=== PATIENT | female | born 1970 | race Caucasian/White ===

== ENCOUNTER 2018-08-03 05:03 | Day surgery (SDC) | payer OTHER ==
[2018-08-02 12:04] VITALS: BMI 30.7
--- NOTE | 2018-08-03 10:58 | HP ---
History & Physical Update - Physical Physical: No Change - Assessment Assessment: No Change - Plan Plan: No Change (H&P reviwed ,no changes)
[2018-08-03] MEDS ORDERED: MIDAZOLAM HCL 2 MG/2 ML SINGLE DOSE VIAL ONE (12:03)
[2018-08-03] MEDS ORDERED: DEXAMETHASONE SOD PHOSPHATE 4 MG/1 ML VIAL ONE (12:21)
[2018-08-03] MEDS ORDERED: LIDOCAINE HCL/PF 2% SDV 5ML VIAL ONE (12:21)
[2018-08-03] MEDS ORDERED: PROPOFOL 20 ML ONE (12:22)
[2018-08-03] MEDS ORDERED: oxyCODONE HCL 5 MG TABLET PO PRN (12:43)
[2018-08-03] MEDS ORDERED: ONDANSETRON 4 MG/2 ML VIAL IVPUSH PRN (12:43)
[2018-08-03] MEDS ORDERED: LACTATED RINGERS SOLUTION 1,000 ML IV SCH (12:45)
[2018-08-03] MEDS ORDERED: KETOROLAC TROMETHAMINE 30 MG/1 ML VIAL ONE (12:53)
--- NOTE | 2018-08-03 13:56 | OP ---
DATE OF OPERATION: 08/03/2018 PREOPERATIVE DIAGNOSIS: Menorrhagia, endometrial polyp. POSTOPERATIVE DIAGNOSIS: Menorrhagia, endometrial polyp, endometrial cyst. SURGEON: Samy Mixon MD ANESTHESIA: General. ANESTHESIOLOGIST: Dimas Smith MD ESTIMATED BLOOD LOSS: 50 mL. DESCRIPTION OF PROCEDURE: The patient was taken to the operating room. Under adequate general anesthesia in dorsal lithotomy position, examination under anesthesia revealed external genitalia to be normal. Vagina was normal. Cervix was clean. No gross lesion. Uterus was prominent, anteverted. Adnexa, no masses were palpable. Then with a weighted speculum in the vagina, anterior lip of the cervix was grasped with a single-tooth tenaculum. Cervix was slightly dilated with Hegar dilator and sounded to 9 cm. Then Symphion resectoscope was introduced. Visualization of endocervical canal appeared to be normal. There was an endometrial polyp in the mid body of the uterus anteriorly and then there was a cystic area on the posterior wall of the uterus, which was prominent with dilated blood vessels. Both cornual regions were identified. No submucosa myoma noted. Then with a Symphion resectoscope, the endometrial polyp was resected. Also that cystic area on the posterior wall of the uterus was also resected and sent to Pathology. Then endometrial curetting was done. The patient tolerated the procedure well and left the OR in good condition. SAMY MIXON M.D. /[id number]
[2018-08-03 17:40] VITALS: TEMP 97.8
[2018-08-03 19:48] VITALS: BP 109/65; PULSE 75
--- NOTE | 2018-08-04 09:58 | OP ---
DATE OF OPERATION: 08/03/2018 PREOPERATIVE DIAGNOSIS: Menorrhagia, endometrial polyp. POSTOPERATIVE DIAGNOSIS: Menorrhagia, endometrial polyp. PROCEDURE: Hysteroscopy, dilatation and curettage, and polypectomy. SURGEON: Samy Mixon MD ANESTHESIA: General. ANESTHESIOLOGIST: Dimas Smith MD ESTIMATED BLOOD LOSS: 25 mL. OPERATION: Patient was taken to the operating room, had adequate general anesthesia, and in dorsal lithotomy position, examination under anesthesia revealed external genitalia to be normal. Vagina was normal. Cervix was clean, no lesion. Uterus was irregular, prominent, consistent with fibroid uterus. Adnexa, no masses were palpable. Then, with a weighted speculum in the vagina, anterior lip of the cervix was grasped with a single-tooth tenaculum. Uterine cavity was sounded to 8 cm. Then, cervix was slightly dilated with Hegar dilator, and then Symphion Resectoscope was introduced into the uterus. The endocervical canal appeared to be normal. There was a polyp at the fundal area of the uterus. Both cornua region of the uterus was identified and tubal ostia were visualized. The rest of the endometrium appeared to be normal. Then, with the resectoscope, the polyp was resected and removed in its entirety, and then, endometrium was curetted. Patient tolerated the procedure well, left the OR in good condition. SAMY MIXON M.D. [id number]
--- NOTE | 2018-08-05 19:27 | PATH ---
Surgical Pathology Report Patient Name: JACINTO CHACON [facility]. Rec. #: [id number] /Age/Gender: 1970 (Age: 47) / F Account: [id number] Location: [facility] SURGICAL Taken: 08/03/2018 Received: 08/04/2018 Reported: 08/05/2018 Physicians: Samy Mixon M.D. Specimen(s) Received A: ENDOMETRIAL POLYP AND FIBROID B: ENDOMETRIAL CURETTINGS Clinical History Endometrial polyp/submucous Final Diagnosis A. ENDOMETRIAL POLYP AND FIBROID, EXCISION: ENDOMETRIAL POLYP. SEPARATE SMOOTH MUSCLE BUNDLES, CONSISTENT WITH SUBMUCOSAL LEIOMYOMA. B. ENDOMETRIAL CURETTINGS: ENDOMETRIAL POLYP. SEPARATE FRAGMENTS OF PROLIFERATIVE ENDOMETRIUM. SEPARATE ENDOCERVICAL TISSUE WITH SQUAMOUS METAPLASIA. Electronically Signed Иван Mullins M.D. Gross Description A. Received in formalin labeled "endometrial polyp/fibroid," is a 2.0 x 1.7 x 0.3 cm aggregate of lewis soft tissue fragments. The formalin is filtered and the specimen is entirely submitted in one cassette. B. Received in formalin labeled "endometrial curettings," is a 1.7 x 1.0 x 0.2 cm aggregate of lewis-brown soft tissue fragments admixed with blood clot. The formalin is filtered and the specimen is entirely submitted in one cassette. /08/04/2018 saudi08/04/2018
== END 2018-08-03 19:15 | disposition home or self-care (01) ==
LOC: JASU-SURG 05:03
PROVIDERS: ATTEND Obstetrics & Gynecology
PROC: 0UJD8ZZ Inspection of Uterus and Cervix, Via Natural or Artificial Opening Endoscopic (ICD-10-PCS; 2018-08-03)
PROC: 0UB97ZX Excision of Uterus, Via Natural or Artificial Opening, Diagnostic (ICD-10-PCS; principal; 2018-08-03 11:00)
PROC: 0UDB7ZX Extraction of Endometrium, Via Natural or Artificial Opening, Diagnostic (ICD-10-PCS; 2018-08-03 11:00)
DX: N92.0 Excessive and frequent menstruation with regular cycle (principal); N84.0 Polyp of corpus uteri
CPT/HCPCS: 84703; 88305-TC; 94760

== ENCOUNTER 2019-03-10 08:45 | Emergency (ER) | payer OTHER ==
[2019-03-10 08:55] VITALS: BMI 30.9
[2019-03-10] MEDS ORDERED: ACETAMINOPHEN 1000 MG/100 ML VIAL (NON FORMULARY) IVPB ONE (09:45)
[2019-03-10] MEDS ORDERED: METOCLOPRAMIDE HCL INJECTION 10 MG/2 ML VIAL IVPUSH ONE (09:45)
--- NOTE | 2019-03-10 09:50 | PDOC ---
History of Present Illness - General Chief Complaint: Headache Stated Complaint: HEADACHE/DIZZINES/BLURRY VISION Time Seen by Provider: 03/10/19 09:10 History Source: Patient - History of Present Illness Initial Comments: 03/10/19 09:50 48f with pmh of herpes simplex and sinus headaches presents to the ED painful pressure behind the eyes, nose and teeth for the past 2 weeks. She also associates this 2 days after exposing herself to the sun at the beach she developed a painless, non-itching, non-burning lesion on her right cheekbone and her left upper lip ( site where she usually gets cold sores). She went to urgent care were they diagnosed her with zoster and sinusitis, gave her a 7 day course of Valtrex 1g TID and Amoxicillin for sinusitis which she completed. Went to her PCP as she was still feeling symptoms, told her he didn't think this was herpes and to consult an ER if symptoms didn't resolve. She denies changes in vision, chest pain, change in auditory perception, Past History - Past Medical History Allergies/Adverse Reactions: Allergies Allergy/AdvReac Type Severity Reaction Status Date / Time No Known Allergies Allergy Verified 03/10/19 08:51 Home Medications: Ambulatory Orders Amoxicillin/Potassium Clav [Amox-Clav 875-125 mg Tablet] 1 each PO BID 03/10/19 Metoclopramide HCl [Reglan] 10 mg PO BID #14 tablet 03/10/19 Anemia: Yes Asthma: Yes (?) Cancer: No Cardiac Disorders: No CVA: No COPD: No CHF: No Dementia: No Diabetes: No GI Disorders: No Disorders: No HTN: No Hypercholesterolemia: No Liver Disease: No Seizures: No Thyroid Disease: No - Surgical History Abdominal Surgery: Yes - Immunization History Immunization Up to Date: Yes - Suicide/Smoking/Psychosocial Hx Smoking History: Never smoked Have you smoked in the past 12 months: No Information on smoking cessation initiated: No Hx Alcohol Use: No Drug/Substance Use Hx: No Substance Use Type: None Hx Substance Use Treatment: No Review of Systems - Review of Systems Able to Perform ROS?: Yes Is the patient limited Malay proficient: No Constitutional: No: Symptoms Reported HEENTM: Yes: See HPI Respiratory: No: Symptoms reported Cardiac (ROS): No: Symptoms Reported ABD/GI: No: Symptoms Reported : No: Symptoms Reported Musculoskeletal: No: Symptoms Reported Integumentary: No: Symptoms Reported Neurological: No: Symptoms reported All Other Systems: Reviewed and Negative *Physical Exam - Vital Signs Last Vital Signs Temp Pulse Resp BP Pulse Ox 98.4 F 66 17 127/86 98 03/10/19 08:52 03/10/19 08:52 03/10/19 08:52 03/10/19 08:52 03/10/19 08:52 - Physical Exam General Appearance: Yes: Nourished, Appropriately Dressed. No: Apparent Distress HEENT: positive: EOMI, MERCEDEZ, Normal ENT Inspection, Other (1x1cm lesion over right zygomatic arch and left upper lip. ) Respiratory/Chest: positive: Lungs Clear, Normal Breath Sounds. negative: Chest Tender, Respiratory Distress Cardiovascular: positive: Regular Rhythm, Regular Rate, S1, S2 Gastrointestinal/Abdominal: positive: Normal Bowel Sounds, Flat, Soft. negative : Tender Musculoskeletal: positive: Normal Inspection. negative: CVA Tenderness Extremity: positive: Normal Capillary Refill, Normal Inspection, Normal Range of Motion Integumentary: positive: Normal Color, Dry, Warm Neurologic: positive: Fully Oriented, Alert, Normal Mood/Affect, Normal Response , Motor Strength 5/5 Medical Decision Making - Medical Decision Making 03/10/19 11:08 48f with pmh of sinus headaches and herpes simplex coming in for sinus pressure. Her lesions are not maculopapular and do not resemble herpetic lesions. In addition the lesions cross the midline and are neither painful nor itchy. The ear canals are normal, no concern for Gallagher-Iverson, No lesion visible over the eyes. Will scan head and orbits/sinus for any sinus abnormality, masses or infection. Negative head and orbit CT. Patient has gotten significant relief of symptoms while in the ED with reglan, tylenol and benadryl. On last reassessment, vitals are wnl, pain is reasonably controlled, and exam is benign. Workup is not concerning for emergency-level pathology at this time. This patient is appropriate for discharge home with neurology and ENT follow up , They is comfortable with this plan. They will take Motrin and/or Tylenol for pain. *DC/Admit/Observation/Transfer Diagnosis at time of Disposition: Sinus headache - Discharge Dispostion Disposition: HOME Condition at time of disposition: Improved Decision to Admit order: No - Referrals Referrals: Shalonda Jane MD [Primary Care Provider] - Nick Nguyen MD [Staff Physician] - Stanford Lafleur MD [Staff Physician] - - Patient Instructions Printed Discharge Instructions: Sinus Headache Additional Instructions: Come back to the emergency department for any new, worsening or concerning symptom. Take Tylenol, Motrin for pain and Benadryl and Reglan if needed. Follow up with the provided ENT doctors and neurologist. - Post Discharge Activity
[2019-03-10] MEDS ORDERED: ACETAMINOPHEN INJECTION 100 ML IVPB ONE (10:44)
[2019-03-10] MEDS ORDERED: METOCLOPRAMIDE HCL INJECTION 10 MG/2 ML VIAL ONE (10:44)
--- NOTE | 2019-03-10 10:50 | PDOC ---
Documentation entered by Von Poe SCRIBE, acting as scribe for Kim Nguyen MD. Kim Nguyen MD: This documentation has been prepared by the Lui christianson Daniel, SCRIBE, under my direction and personally reviewed by me in its entirety. I confirm that the documentation accurately reflects all work, treatment, procedures, and medical decision making performed by me. Attending Attestation - Resident Resident Name: Uriel Pace - ED Attending Attestation I have performed the following: I have examined & evaluated the patient, The case was reviewed & discussed with the resident, I agree w/resident's findings & plan - HPI HPI: 03/10/19 09:45 The patient is a 48 year old female with no past medical history here today for evaluation of headache. The patient reports that she recently developed a rash on her face with lesions after going to the beach which was diagnosed as shingles at an urgent care but was told by her PCP that it wasnt shingles. She reports that she came in today because of her generalized throbbing headache which she describes as a pressure behind her nose and eyes, intermittently occurring, and has been going on for 1 week. She has also experienced left sided neck stiffness, worse with movement. She notes taking aleve and sudafed which provided no relief. She also notes left neck stiffness and blurry vision and nasal congestion, mild cough. Patient denies fever, chills. Denies chest pain, shortness of breath. Denies nausea, vomiting, diarrhea, abdominal pain. Denies sore throat, ear pain. no travel no sick contacts. has completed valtrex course x 1 week. has 2 more days of amoxicillin left for her sinusitis. Allergies: NKA PCP: Shalonda Jane 03/10/19 10:47 - Physicial Exam PE: 03/10/19 10:17 +pearly lesions on right forehead, right cheek and lower jaw, no crusting, no discharge, one small scabbed over lesion on lower jaw. +anxious appearing, EOMI , PERRL, MMM, nl conjunctiva, anicteric; no tenderness to sinus percussion. oropharynx clear, no lesions, normal phonation. neck supple, FROM, no meningeal signs. lungs clear, RRR, abdomen soft nontender. Back nontender. ERNST x4, no focal neuro deficits. no cerebellar signs. No peripheral edema. normal color for ethnicity, WWP. CN II-XII grossly intact, speech clear. CN V grossly intact, 5/5 masseter muscles, sensation grossly intact V1-3 gait stable, no ataxia. visual acuity 20/20 bilaterally with corrective lenses. no injection and no chemosis. T. M clear b/l 03/10/19 10:44 03/10/19 10:46 03/10/19 10:49 - Medical Decision Making 03/10/19 10:45 hpi as documented VS reviewed wnl Vital Signs Temp Pulse Resp BP Pulse Ox 98.4 F 66 17 127/86 98 03/10/19 08:52 03/10/19 08:52 03/10/19 08:52 03/10/19 08:52 03/10/19 08:52 DDX headache: sinusitis, sinus kim, cluster, migraine, tension kim, furniture mover helper lesion, mass. viral syndrome. viral infection. conjunctivitis. herpes, trigeminal neuralgia no rash to indicate zoster or herpes ophthalmicus. no nasal lesions nontoxic appearing CT orbits and head neg for acute pathology analgesia here with reglan, benadryl and tylenol, reassess impression : most likely sinusitis, of viral etiology. has 2 more days of amox left finished valtrex headache/sinus pain/pressure to be further evaluated with ENT followup, feels improved after meds, comfortable with plan and discharge Pt to be discharged in stable condition. Patient and family made aware of clinical impression, treatment recommendations and disposition plan, return precautions discussed (including but not limited to new or persistent/worsening symptoms, pain, fevers, or signs of infection, chest pain, respiratory distress , inability to tolerate oral intake, dehydration, syncope, or neurologic changes ). Follow up with PMD and/or specialist as recommended, follow up information provided, take medications as instructed for duration of time. continue with supportive care, avoid triggers and precipitants. All questions answered to patient's satisfaction and expressed understanding and comfort with this. At the time of discharge, the patient is alert, clinically improved, tolerating po and verbalizes understanding of instructions, satisfied with the care received and felt comfortable with the plan. Patient does not suffer from an acute life- threatening medical condition at this time and is safe for outpatient follow- up. 03/10/19 10:48 03/10/19 12:10
[2019-03-10 12:37] VITALS: BP 128/79; PULSE 80; TEMP 98
== END 2019-03-10 12:37 | disposition home or self-care (01) ==
LOC: JER 08:45
PROC: 3E033NZ Introduction of Analgesics, Hypnotics, Sedatives into Peripheral Vein, Percutaneous Approach (ICD-10-PCS; principal; 2019-03-10)
PROC: 3E033GC Introduction of Other Therapeutic Substance into Peripheral Vein, Percutaneous Approach (ICD-10-PCS; 2019-03-10)
DX: J32.9 Chronic sinusitis, unspecified (principal)
CPT/HCPCS: 70450-TC; 70480-TC; 84703; 99283-25; J0131

== ENCOUNTER 2019-03-23 05:20 | Emergency (ER) | payer OTHER ==
[2019-03-23 07:05] VITALS: BP 127/88; PULSE 68; TEMP 98.4; BMI 31.0
[2019-03-23 08:22] LABS: BASO % 0.6 % (0-2.0); EOS % 0.4 % (0-4.5); HEMOGLOBIN 13.9 GM/dL (10.7-15.3); LYMPH % 23.1 % (8-40); MCH 30.4 pg (25.7-33.7); MCHC 34.9 g/dl (32.0-36.0); MEAN CELL VOLUME 87.1 fl (80-96); MEAN PLT VOLUME 9.8 fl (7.5-11.1); MONO % 7.6 % (3.8-10.2); NEUT % 68.3 % (42.8-82.8); PLATELET COUNT 252 K/MM3 (134-434); RBC 4.58 M/mm3 (3.60-5.2); RDW 13.1 % (11.6-15.6); WHITE BLOOD COUNT 7.2 K/mm3 (4.0-10.0)
--- NOTE | 2019-03-23 08:22 | PDOC ---
Documentation entered by Elida Pierre SCRIBE, acting as scribe for Milton Giles MD. Milton Giles MD: This documentation has been prepared by the Gabby christianson Sammi, SCRIBE, under my direction and personally reviewed by me in its entirety. I confirm that the documentation accurately reflects all work, treatment, procedures, and medical decision making performed by me. History of Present Illness - General Chief Complaint: Shortness of Breath Stated Complaint: hEADACHE/ SHORTNESS OF BREATH Time Seen by Provider: 03/23/19 07:23 - History of Present Illness Initial Comments: 03/23/19 08:12 The patient is a 48 year old who presents to the emergency department for evaluation of sinus pressure and malaise. Pt states her symptoms initially started a month ago when she was diagnosed with facial shingles. Pt completed a course of valtrex but had persistent pain in her face. The patient reports about 1 week ago she was evaluated by an ENT and diagnosed wih a sinus infection. She was prescribed prednisone, amoxicillin, and ear drops, with mild relief. Today she presents with similar symptoms of sinus pressure, as well as generalized malaise. She reports feeling lightheaded. Denies any chest pain but reports a transient episode of SOB this morning. Denies SOB currently. Denies lower extremity swelling. Denies fever or chills. No rash. Denies BUTLER/N/V. Denies neck pain/stiffness. PCP: Lucinda Medical history: none reported Allergies: NKA Past History - Past Medical History Allergies/Adverse Reactions: Allergies Allergy/AdvReac Type Severity Reaction Status Date / Time No Known Allergies Allergy Verified 03/23/19 07:05 Home Medications: Ambulatory Orders Amoxicillin/Potassium Clav [Amox-Clav 875-125 mg Tablet] 1 each PO BID 03/10/19 Metoclopramide HCl [Reglan] 10 mg PO BID #14 tablet 03/10/19 Anemia: Yes Asthma: Yes (?) Cancer: No Cardiac Disorders: No CVA: No COPD: No CHF: No Dementia: No Diabetes: No GI Disorders: No Disorders: No HTN: No Hypercholesterolemia: No Liver Disease: No Seizures: No Thyroid Disease: No - Surgical History Abdominal Surgery: Yes - Immunization History Immunization Up to Date: Yes - Suicide/Smoking/Psychosocial Hx Smoking History: Never smoked Have you smoked in the past 12 months: No Information on smoking cessation initiated: No Hx Alcohol Use: Yes (Social) Drug/Substance Use Hx: No Substance Use Type: None Hx Substance Use Treatment: No Review of Systems - Review of Systems Comments:: 03/23/19 08:13 GENERAL/CONSTITUTIONAL: No fever or chills. No weakness. HEAD, EYES, EARS, NOSE AND THROAT: (+)sinus pressure. No ear pain or discharge. No sore throat. CARDIOVASCULAR: (+) shortness of breath, no CP, no loss of consciousness RESPIRATORY: No cough, wheezing, or hemoptysis. GASTROINTESTINAL: No vomiting, diarrhea or constipation. GENITOURINARY: No dysuria, frequency, or change in urination. MUSCULOSKELETAL: No neck or back pain, no joint pain SKIN: No rash NEUROLOGIC: No vertigo, no change in strength/sensation. *Physical Exam - Vital Signs Last Vital Signs Temp Pulse Resp BP Pulse Ox 98.4 F 68 19 127/88 99 03/23/19 05:20 03/23/19 05:20 03/23/19 05:20 03/23/19 05:20 03/23/19 05:20 - Physical Exam Comments: 03/23/19 08:26 GENERAL: Awake, alert, and fully oriented, in no acute distress. HEAD: No signs of trauma EYES: PERRLA, EOMI, sclera anicteric, conjunctiva clear ENT: Auricles normal inspection, hearing grossly normal, nares patent, oropharynx clear without exudates. Moist mucosa NECK: Nontender, no stepoffs, Normal ROM, supple, no lymphadenopathy, JVD, or masses LUNGS: Breath sounds equal, clear to auscultation bilaterally. No wheezes, and no crackles HEART: Regular rate and rhythm, normal S1 and S2, no murmurs, rubs or gallops ABDOMEN: Soft, nontender, normoactive bowel sounds. No guarding, no rebound. No masses EXTREMITIES: Normal range of motion, no edema. No clubbing or cyanosis. No cords, erythema, or tenderness NEUROLOGICAL: Cranial nerves II through XII intact. 5/5 strength and sensation in all extremities, Normal speech, normal gait, normal cerebellar function SKIN: Warm, Dry, normal turgor, no rashes or lesions noted. ED Treatment Course - LABORATORY CBC & Chemistry Diagram: 03/23/19 08:13 03/23/19 08:13 Medical Decision Making - Medical Decision Making 03/23/19 08:26 48 F with sinus pressure and malaise. Suspect sinus infection. Possible post- herpetic neuralgia from prior shingles rash. Pt also with transient episode of SOB this morning, now resolved. Normal vitals. No clinical signs of DVT or volume overload. Will r/o ACS with trop and EKG. - Labs, trop - CT head/facial bones - IVF, Tylenol 03/23/19 10:04 Labs [address] CTs unremarkable Pt is well appearing, with normal vitals. Clinically stable for DC at this time. I discussed the physical exam findings, ancillary test results and final diagnoses with the patient. I answered all of the patient's questions. The patient was satisfied with the care received and felt comfortable with the discharge plan and treatment plan. The patient agrees to follow up with the primary care physician within 24-72 hours. *DC/Admit/Observation/Transfer Diagnosis at time of Disposition: Sinus headache, Malaise, SOB (shortness of breath) - Discharge Dispostion Disposition: HOME Condition at time of disposition: Fair - Referrals Referrals: Sunny Hernandez MD [Staff Physician] - - Patient Instructions Printed Discharge Instructions: DI for Sinus Headache, DI for Neuralgia Additional Instructions: Please follow up with your ENT as well as a neurologist this week for further evaluation of your facial pain. Call the number provided to make an appointment with our neurologist. If you experience fevers, worsening pain, headaches, or any other concerning symptoms, return to the ER immediately. - Post Discharge Activity - Attestations Physician Attestion: 03/23/19 10:08 I, Dr. Milton Giles MD, attest that this document has been prepared under my direction and personally reviewed by me in its entirety. I further attest, that it accurately reflects all work, treatment, procedures and medical decision -making performed by me.
[2019-03-23] MEDS ORDERED: ACETAMINOPHEN 1000 MG/100 ML VIAL (NON FORMULARY) IVPB ONE (08:27)
[2019-03-23] MEDS ORDERED: SODIUM CHLORIDE 1,000 ML IV STA (08:27)
[2019-03-23 08:53] LABS: BILIRUBIN,TOTAL 0.9 mg/dL (0.2-1); BLOOD UREA NITROGEN 10.7 mg/dL (7-18); CALCIUM 9.5 mg/dL (8.5-10.1); CREATININE 0.7 mg/dL (0.55-1.3); POTASSIUM 4.3 mmol/L (3.5-5.1); TOT PROT 7.3 g/dl (6.4-8.2)
--- NOTE | 2019-03-23 09:02 | EKG ---
Test Reason : Blood Pressure : / mmHG Vent. Rate : 069 BPM Atrial Rate : 069 BPM P-R Int : 142 ms QRS Dur : 098 ms QT Int : 424 ms P-R-T Axes : 058 -32 052 degrees QTc Int : 454 ms NORMAL SINUS RHYTHM LEFT AXIS DEVIATION ABNORMAL ECG WHEN COMPARED WITH ECG OF 29-JUL-2018 18:50, NO SIGNIFICANT CHANGE WAS FOUND Confirmed by ANIVAL RAMIREZ MD ([id number]) on 03/23/2019 9:01:45 AM Referred By: Confirmed By:ANIVAL RAMIREZ MD
[2019-03-23] MEDS ORDERED: ACETAMINOPHEN INJECTION 100 ML IVPB ONE (09:23)
== END 2019-03-23 10:47 | disposition home or self-care (01) ==
LOC: JER 05:20
PROC: 3E033NZ Introduction of Analgesics, Hypnotics, Sedatives into Peripheral Vein, Percutaneous Approach (ICD-10-PCS; principal; 2019-03-23)
PROC: 3E0337Z Introduction of Electrolytic and Water Balance Substance into Peripheral Vein, Percutaneous Approach (ICD-10-PCS; 2019-03-23)
DX: G50.1 Atypical facial pain (principal); R53.81 Other malaise; R06.02 Shortness of breath
CPT/HCPCS: 36415; 70450-TC; 70486-TC; 71046-TC-FY; 80053; 82550; 84484; 85025; 93005; 93010; 99284-25; J0131; J7030

== ENCOUNTER 2020-03-23 15:54 | Emergency (ER) | payer OTHER ==
[2020-03-23 16:35] VITALS: BMI 32.9
--- NOTE | 2020-03-23 17:02 | PDOC ---
History of Present Illness - General Chief Complaint: Pain Stated Complaint: STOMACH PAIN/WEAKNESS/NAUSEA (EXTREME) Time Seen by Provider: 03/23/20 17:01 Past History - Medical History Allergies/Adverse Reactions: Allergies Allergy/AdvReac Type Severity Reaction Status Date / Time No Known Allergies Allergy Verified 03/23/19 07:05 Home Medications: Ambulatory Orders Amoxicillin/Potassium Clav [Amox-Clav 875-125 mg Tablet] 1 each PO BID 03/10/19 Metoclopramide HCl [Reglan] 10 mg PO BID #14 tablet 03/10/19 Anemia: Yes Asthma: Yes (?) Cancer: No Cardiac Disorders: No CVA: No COPD: No CHF: No Dementia: No Diabetes: No GI Disorders: No Disorders: No HTN: No Hypercholesterolemia: No Liver Disease: No Seizures: No Thyroid Disease: No - Surgical History Abdominal Surgery: Yes - Reproductive History Is Patient Now?: No - Immunization History Immunization Up to Date: No - Psycho-Social/Smoking History Smoking History: Never smoked Have you smoked in the past 12 months: No - Substance Abuse Hx (Audit-C & DAST Scrn) How often the patient has a drink containing alcohol: Never Score: In Men: 4 or > Positive; In Women: 3 or > Positive: 0 Screen Result (Pos requires Nsg. Audit-10AR): Negative In the last yr the pt used illegal drug/Rx for NonMed reason: No Score: Yes response is considered Positive: 0 Screen Result (Positive result requires Nsg. DAST-10): Negative *Physical Exam - Vital Signs Last Vital Signs Temp Pulse Resp BP Pulse Ox 98.4 F 75 20 147/75 100 03/23/20 16:23 03/23/20 16:23 03/23/20 16:23 03/23/20 16:23 03/23/20 16:23 Discharge - Follow up/Referral Referrals: Shalonda Jane MD [Primary Care Provider] - - Patient Discharge Instructions - Post Discharge Activity
[2020-03-23] MEDS ORDERED: SODIUM CHLORIDE 0.9% 500 ML INFUS.BAG IV ONE (17:41)
[2020-03-23] MEDS ORDERED: PANTOPRAZOLE SODIUM 40 MG VIAL IVPUSH ONE (17:42)
[2020-03-23] MEDS ORDERED: ONDANSETRON 4 MG/2 ML VIAL IVPUSH ONE (17:42)
[2020-03-23] MEDS ORDERED: ACETAMINOPHEN 1000 MG/100 ML VIAL (NON FORMULARY) IVPB ONE (17:42)
--- NOTE | 2020-03-23 17:46 | PDOC ---
History of Present Illness - General History Source: Patient Exam Limitations: No Limitations - History of Present Illness Initial Comments: 03/23/20 17:43 49-year-old female no significant past medical history with 5 days of epigastric abdominal pain radiating towards the left lower quadrant. Patient states that she is having significant amount of dry heaves and nausea. Patient states she is unable to tolerate p.o. food or fluids as they exacerbate the pain. Patient is also endorsing abdominal bloating. Last menstrual period in January, patient states that she is premenopausal. No abdominal surgeries. Pt otherwise denies: fevers, chills, syncope, lightheadedness, dizziness, headaches, neck pain, chest pain, shortness of breath, palpitations, back pain, diarrhea, constipation. <Franky Mckeon - Last Filed: 03/23/20 23:54> <Kim Nguyen - Last Filed: 03/24/20 12:21> - General Chief Complaint: Pain Stated Complaint: STOMACH PAIN/WEAKNESS/NAUSEA (EXTREME) Time Seen by Provider: 03/23/20 17:01 Past History - Medical History Anemia: Yes Asthma: Yes (?) Cancer: No Cardiac Disorders: No CVA: No COPD: No CHF: No Dementia: No Diabetes: No GI Disorders: No Disorders: No HTN: No Hypercholesterolemia: No Liver Disease: No Seizures: No Thyroid Disease: No - Surgical History Abdominal Surgery: Yes - Reproductive History Is Patient Now?: No - Immunization History Immunization Up to Date: No - Psycho-Social/Smoking History Smoking History: Never smoked Have you smoked in the past 12 months: No - Substance Abuse Hx (Audit-C & DAST Scrn) How often the patient has a drink containing alcohol: Never Score: In Men: 4 or > Positive; In Women: 3 or > Positive: 0 Screen Result (Pos requires Nsg. Audit-10AR): Negative In the last yr the pt used illegal drug/Rx for NonMed reason: No Score: Yes response is considered Positive: 0 Screen Result (Positive result requires Nsg. DAST-10): Negative <Franky Mckeon - Last Filed: 03/23/20 23:54> <Kim Nguyen - Last Filed: 03/24/20 12:21> - Medical History Allergies/Adverse Reactions: Allergies Allergy/AdvReac Type Severity Reaction Status Date / Time No Known Allergies Allergy Verified 03/23/19 07:05 Home Medications: Ambulatory Orders Amoxicillin/Potassium Clav [Amox-Clav 875-125 mg Tablet] 1 each PO BID 03/10/19 Metoclopramide HCl [Reglan] 10 mg PO BID #14 tablet 03/10/19 Cephalexin [Keflex] 500 mg PO BID 5 Days #10 capsule 03/23/20 *Physical Exam - Vital Signs Last Vital Signs Temp Pulse Resp BP Pulse Ox 98.4 F 75 20 147/75 100 03/23/20 16:23 03/23/20 16:23 03/23/20 16:23 03/23/20 16:23 03/23/20 16:23 - Physical Exam 03/23/20 17:45 Gen: AAOx 3, no acute distress, comfortable, no signs of respiratory distress HENT: atraumatic, normocephalic with no laceration or contusion. Nasal mucosa without erythema. Oropharynx without erythema or exudates. Mucous membranes moist. EYES: PERRL, EOM intact, conjunctiva pink NECK: supple; trachea midline; no JVD, no lymphadenopathy, or thyromegaly CV: RRR no murmurs, gallops, or rubs. CHEST: CTA b/l no wheezing, rales or rhonchi ABD: +BS/ND. diffusely TTP throughout with rebound and guarding specifically in the epigastrium and LLQ EXTREMITY: no cyanosis or erythema. 2+ dorsalis pedis, posterior tibial, and radial pulse. No pedal edema; no calf swelling or tenderness SKIN: no rash, warm and dry, no diaphoresis HEME: no purpura or ecchymosis NEURO: normal speech, CN II-XII intact, sensation intact, normal gait, no cerebellar deficits MS: 5/5 strength in all extremities, FROM intact in all extremities. <Franky Mckeon - Last Filed: 03/23/20 23:54> - Vital Signs Last Vital Signs Temp Pulse Resp BP Pulse Ox 97.4 F L 61 18 123/75 96 03/23/20 23:22 03/23/20 23:22 03/23/20 23:22 03/23/20 23:22 03/23/20 23:22 <Kim Nguyen - Last Filed: 03/24/20 12:21> ED Treatment Course - LABORATORY CBC & Chemistry Diagram: 03/23/20 17:30 03/23/20 17:30 - RADIOLOGY Radiology Studies Ordered: Category Date Time Status ABDOMEN & PELVIS CT WITH CONTR [CT] Stat CT Scan 03/23/20 17:42 Ordered <MikeFranky - Last Filed: 03/23/20 23:54> - LABORATORY CBC & Chemistry Diagram: 03/23/20 17:30 03/23/20 17:30 - ADDITIONAL ORDERS Additional order review: 03/23/20 17:30 RBC 4.57 MCV 86.8 MCHC 34.8 RDW 12.3 MPV 10.0 Neutrophils % 51.9 D Lymphocytes % 38.6 D Monocytes % 8.1 Eosinophils % 0.7 Basophils % 0.7 - Medications Given in the ED: ED Medications Discontinued Medications Generic Name Dose Route Start Last Admin Trade Name Eltonq PRN Reason Stop Dose Admin Acetaminophen 1,000 mg 03/23/20 17:42 03/23/20 18:10 Ofirmev Injection - IVPB 03/23/20 17:43 1,000 mg ONCE ONE Administration Morphine Sulfate 4 mg 03/23/20 20:27 03/23/20 21:41 Morphine Injection - IVPUSH 03/23/20 20:28 4 mg ONCE ONE Administration Ondansetron HCl 4 mg 03/23/20 17:42 03/23/20 18:10 Zofran Injection IVPUSH 03/23/20 17:43 4 mg ONCE ONE Administration Pantoprazole Sodium 40 mg 03/23/20 17:42 03/23/20 18:10 Protonix Iv IVPUSH 03/23/20 17:43 40 mg ONCE ONE Administration Sodium Chloride 1,000 ml 03/23/20 17:41 03/23/20 18:10 Normal Saline - IV 03/23/20 17:42 1,000 ml ONCE ONE Administration <Kim Nguyen - Last Filed: 03/24/20 12:21> Medical Decision Making - Medical Decision Making 03/23/20 17:45 49-year-old female with diffuse abdominal pain Vital signs stable Will obtain labs UA UC and CT abdomen pelvis with contrast Will administer IV Tylenol Protonix normal saline and Zofran for symptomatic relief Will reassess based on results Bedside POCUS showed no acute gallbladder pathology CBC White blood cell count 7.2 H&H stable at 13.8/39.7 Chemistry all within normal limits Troponin negative Lipase within normal limits UA significant for UTI (will send patient home on keflex) EKG is sinus bradycardia at [address] elevations or depressions CT shows possible mild concentric wall thickening along the lower half of the rectum correlate clinically and with colonoscopy Diffuse hepatic steatosis Minimal to mild splenomegaly Patient reports resolution of pain with meds and is resting comfortably on stretcher Patient to follow-up with GI Patient instructed to take Pepcid as well as Maalox for symptomatic relief at home Pt appears well and is safe and stable for discharge with strict return precautions including signs and symptoms requring immediate return to the ED Supportive care instructions explained and given to pt. Reasons to return emergently to ER explained and given. Importance of follow up with PMD and other specialists as indicated stressed to pt. Pt verbalized understanding of instructions. Pt to follow up with PMD in 2 days. <Franky Mckeon - Last Filed: 03/23/20 23:54> - Medical Decision Making 03/24/20 12:20 The patient was seen and evaluated in conjunction with midlevel provider under my direct supervision, ancillary studies were reviewed. I agree with the plan as outlined DARRYL Mckeon. HPI, workup/dispo as outlined. VS reviewed, wnl. pocus gb neg for pathology or stones. labs and lytes analgesia CT a/p to eval for diverticulitis or abdominal pathology given her locality of . <Kim Nguyen - Last Filed: 03/24/20 12:21> Discharge - Discharge Information Problems reviewed: Yes <Franky Mckeon - Last Filed: 03/23/20 23:54> <Kim Nguyen - Last Filed: 03/24/20 12:21> - Discharge Information Clinical Impression/Diagnosis: Abdominal pain Qualifiers: Abdominal location: epigastric Qualified Code(s): R10.13 - Epigastric pain Condition: Stable Disposition: HOME - Additional Discharge Information Prescriptions: Cephalexin [Keflex] 500 mg PO BID 5 Days #10 capsule - Follow up/Referral Referrals: Shalonda Jane MD [Primary Care Provider] - Davis Tanner DO [Staff Physician] - - Patient Discharge Instructions Patient Printed Discharge Instructions: DI for Abdominal Pain-Adult Additional Instructions: PLEASE FOLLOW UP WITH PCP AND GI TAKE MAALOX 4 TIMES A DAY AND TWO TABS OF PEPCID IN THE MORNING - Post Discharge Activity
[2020-03-23] MEDS ORDERED: ACETAMINOPHEN INJECTION 100 ML IVPB ONE (17:50)
[2020-03-23] MEDS ORDERED: PANTOPRAZOLE SODIUM 40 MG/100 ML BAG IVPB ONE (17:50)
[2020-03-23 18:15] LABS: BASO % 0.7 % (0-2.0); EOS % 0.7 % (0-4.5); HEMATOCRIT 39.7 % (32.4-45.2); HEMOGLOBIN 13.8 GM/dL (10.7-15.3); LYMPH % 38.6 % (8-40); MCH 30.2 pg (25.7-33.7); MCHC 34.8 g/dl (32.0-36.0); MEAN CELL VOLUME 86.8 fl (80-96); MONO % 8.1 % (3.8-10.2); NEUT % 51.9 % (42.8-82.8); PLATELET COUNT 261 K/MM3 (134-434); RBC 4.57 M/mm3 (3.60-5.2); RDW 12.3 % (11.6-15.6); WHITE BLOOD COUNT 7.2 K/mm3 (4.0-10.0)
[2020-03-23 18:26] LABS: INR 1.14 (0.83-1.09); PROTHROMBIN TIME (PATIENT) 13.5 SEC (9.7-13.0)
[2020-03-23 18:46] LABS: ALBUMIN 4.1 g/dl (3.4-5.0); ALK PHOS 92 U/L (45-117); ANION GAP 7 MMOL/L (8-16); BILIRUBIN,TOTAL 0.9 mg/dL (0.2-1); BLOOD UREA NITROGEN 9.6 mg/dL (7-18); CALCIUM 9.6 mg/dL (8.5-10.1); CHLORIDE 107 mmol/L (98-107); CO2 27 mmol/L (21-32); CREATININE 0.7 mg/dL (0.55-1.3); GLUCOSE,RANDOM 80 mg/dL (74-106); LIPASE 80 U/L (73-393); POTASSIUM 3.9 mmol/L (3.5-5.1); SGOT/AST 25 U/L (15-37); SGPT/ALT 39 U/L (13-61); SODIUM 141 mmol/L (136-145); TOT PROT 7.6 g/dl (6.4-8.2)
[2020-03-23 19:14] LABS: EPI CELLS 16 /uL (0-25.1); HYALINE CASTS 2 /uL (0-3.1); PH,URINE 5.5 (5.0-8.0); URINE APPEARANCE CLOUDY; URINE BACTERIA 918 /uL (0-1359); URINE BILIRUBIN NEGATIVE (NEGATIVE); URINE COLOR YELLOW; URINE GLUCOSE (UA) NEGATIVE (NEGATIVE); URINE KETONE 2+ (NEGATIVE); URINE LEUK ESTERASE 1+ (NEGATIVE); URINE NITRITE NEGATIVE (NEGATIVE); URINE PROTEIN NEGATIVE (NEGATIVE); URINE RBC 4 /uL (0-23.9); URINE WBC 125 /uL (0-25.8)
[2020-03-23] MEDS ORDERED: morphine CARPU-JECT 4 MG/1 ML DISP.SYRIN IVPUSH ONE (20:27)
[2020-03-23] MEDS ORDERED: morphine SULFATE 4 MG/ML VIAL ONE (21:35)
[2020-03-23 23:25] VITALS: BP 123/75; PULSE 61; TEMP 97.4
--- NOTE | 2020-03-24 14:58 | EKG ---
Test Reason : Blood Pressure : / mmHG Vent. Rate : 057 BPM Atrial Rate : 057 BPM P-R Int : 132 ms QRS Dur : 104 ms QT Int : 466 ms P-R-T Axes : 030 -32 001 degrees QTc Int : 453 ms SINUS BRADYCARDIA LEFT AXIS DEVIATION ABNORMAL ECG WHEN COMPARED WITH ECG OF 23-MAR-2019 06:31, T WAVE INVERSION NOW EVIDENT IN INFERIOR LEADS Confirmed by Enmanuel Cornell ([id number]) on 03/24/2020 2:57:38 PM Referred By: Confirmed By:Enmanuel Cornell
== END 2020-03-23 23:24 | disposition home or self-care (01) ==
LOC: JER 15:54
PROC: 3E033NZ Introduction of Analgesics, Hypnotics, Sedatives into Peripheral Vein, Percutaneous Approach (ICD-10-PCS; principal; 2020-03-23)
PROC: 3E033GC Introduction of Other Therapeutic Substance into Peripheral Vein, Percutaneous Approach (ICD-10-PCS; 2020-03-23)
DX: R10.13 Epigastric pain (principal)
CPT/HCPCS: 36415; 74177-TC; 76705-TC; 80053; 81003; 82550; 83690; 84484; 84703; 85025; 85610; 87086; 93005; 93010; 99285-25; J0131; Q9967

== ENCOUNTER 2020-09-14 20:31 | Emergency (ER) | payer OTHER ==
[2020-09-14 20:41] VITALS: BMI 34.0
[2020-09-14] MEDS ORDERED: LACTATED RINGERS SOLUTION 1000 ML INFUS.BAG IV ONE (21:56)
[2020-09-14] MEDS ORDERED: ACETAMINOPHEN 1000 MG/100 ML VIAL (NON FORMULARY) IVPB ONE (21:56)
[2020-09-14] MEDS ORDERED: FAMOTIDINE 20 MG/50 ML IVPB 20 MG/50 ML MG IVPB ONE ×2 (21:56→22:17)
[2020-09-14] MEDS ORDERED: ACETAMINOPHEN INJECTION 100 ML IVPB ONE (22:17)
[2020-09-14 22:52] LABS: BASO % 0.8 % (0-2.0); EOS % 0.8 % (0-4.5); HEMATOCRIT 37.4 % (32.4-45.2); HEMOGLOBIN 13.1 GM/dL (10.7-15.3); LYMPH % 29.8 % (8-40); MCH 30.5 pg (25.7-33.7); MCHC 34.9 g/dl (32.0-36.0); MEAN CELL VOLUME 87.5 fl (80-96); MONO % 7.1 % (3.8-10.2); NEUT % 61.5 % (42.8-82.8); PLATELET COUNT 225 K/MM3 (134-434); RBC 4.27 M/mm3 (3.60-5.2); RDW 12.7 % (11.6-15.6); WHITE BLOOD COUNT 7.4 K/mm3 (4.0-10.0)
[2020-09-14] MEDS ORDERED: morphine CARPU-JECT 2 MG/1 ML DISP.SYRIN IVPUSH ONE (23:16)
[2020-09-14 23:19] LABS: CHLORIDE 110 mmol/L (98-107); POTASSIUM 4.4 mmol/L (3.5-5.1); SODIUM 142 mmol/L (136-145)
[2020-09-14 23:23] LABS: ALBUMIN 3.7 g/dl (3.4-5.0); ANION GAP 6 MMOL/L (8-16); CALCIUM 9.2 mg/dL (8.5-10.1); CO2 26 mmol/L (21-32); GLUCOSE,RANDOM 88 mg/dL (74-106); LIPASE 69 U/L (73-393); MAGNESIUM 2.2 mg/dL (1.8-2.4)
[2020-09-14 23:26] LABS: CREATININE 0.6 mg/dL (0.55-1.3); SGOT/AST 24 U/L (15-37); SGPT/ALT 33 U/L (13-61)
[2020-09-14 23:28] LABS: BILIRUBIN,TOTAL 0.9 mg/dL (0.2-1)
[2020-09-14 23:29] LABS: ALK PHOS 89 U/L (45-117)
[2020-09-14] MEDS ORDERED: MORPHINE SULFATE 2 MG/ML VIAL ONE (23:33)
[2020-09-15] MEDS ORDERED: SUCRALFATE 1 GM/10 ML UNIT DOSE CUPS PO ONE (00:47)
[2020-09-15] MEDS ORDERED: SUCRALFATE 1 GM TABLET (FP) PO ONE (01:29)
[2020-09-15] MEDS ORDERED: SUCRALFATE 1 GM TABLET (FP) ONE (01:29)
[2020-09-15 01:39] VITALS: BP 142/84; PULSE 72; TEMP 98
[2020-09-15] MEDS ORDERED: MAG HYDROX/ALH/SMC/DPHA/LIDO 240 ML MOUTHWASH MM ONE (21:57)
== END 2020-09-15 01:42 | disposition home or self-care (01) ==
LOC: JER 20:31
PROC: 3E033NZ Introduction of Analgesics, Hypnotics, Sedatives into Peripheral Vein, Percutaneous Approach (ICD-10-PCS; principal; 2020-09-14)
PROC: 3E033GC Introduction of Other Therapeutic Substance into Peripheral Vein, Percutaneous Approach (ICD-10-PCS; 2020-09-14)
DX: R10.84 Generalized abdominal pain (principal)
CPT/HCPCS: 36415; 74177-TC; 80053; 83605; 83690; 83735; 84484; 84703; 85025; 93005; 93010; 99285-25; J0131; Q9967

== ENCOUNTER 2020-10-04 18:00 | Emergency (ER) | payer OTHER ==
[2020-10-04 18:06] VITALS: TEMP 97.6; BMI 35.2
[2020-10-04] MEDS ORDERED: ONDANSETRON 4 MG/2 ML VIAL IVPUSH ONE (19:21)
[2020-10-04] MEDS ORDERED: SODIUM CHLORIDE 1,000 ML IV STA (19:21)
[2020-10-04] MEDS ORDERED: MAG HYDROX/AL HYDROX/SIMETH -MYLANTA- ORAL SUSPENSION PO ONE (19:36)
[2020-10-04] MEDS ORDERED: FAMOTIDINE 20 MG/50 ML IVPB 20 MG/50 ML MG IVPB ONE ×2 (19:36→20:12)
[2020-10-04] MEDS ORDERED: LIDOCAINE VISCOUS 2% ORAL/TOP 20 ML UNIT-DOSE CUP MM ONE (19:36)
[2020-10-04 19:52] LABS: PH,URINE 7.5 (5.0-8.0); URINE APPEARANCE CLEAR; URINE BILIRUBIN NEGATIVE (NEGATIVE); URINE COLOR YELLOW; URINE GLUCOSE (UA) NEGATIVE (NEGATIVE); URINE KETONE NEGATIVE (NEGATIVE); URINE LEUK ESTERASE NEGATIVE (NEGATIVE); URINE NITRITE NEGATIVE (NEGATIVE); URINE PROTEIN NEGATIVE (NEGATIVE); URINE UROBILINOGEN 0.2 mg/dL (0.2-1.0)
[2020-10-04] MEDS ORDERED: LIDOCAINE VISCOUS 2% ORAL/TOP 20 ML UNIT-DOSE CUP ONE (20:11)
[2020-10-04] MEDS ORDERED: ONDANSETRON 4 MG/2 ML VIAL ONE (20:12)
[2020-10-04] MEDS ORDERED: MAG HYDROX/AL HYDROX/SIMETH 30 ML UNIT-DOSE CUP ONE (20:12)
[2020-10-04 20:28] LABS: BASO % 0.9 % (0-2.0); EOS % 1.3 % (0-4.5); HEMATOCRIT 39.3 % (32.4-45.2); HEMOGLOBIN 13.4 GM/dL (10.7-15.3); LYMPH % 42.7 % (8-40); MCH 30.2 pg (25.7-33.7); MCHC 34.2 g/dl (32.0-36.0); MEAN CELL VOLUME 88.5 fl (80-96); MONO % 7.9 % (3.8-10.2); NEUT % 47.2 % (42.8-82.8); PLATELET COUNT 256 K/MM3 (134-434); RBC 4.44 M/mm3 (3.60-5.2); RDW 12.4 % (11.6-15.6); WHITE BLOOD COUNT 6.1 K/mm3 (4.0-10.0)
[2020-10-04] MEDS ORDERED: morphine CARPU-JECT 4 MG/1 ML DISP.SYRIN IVPUSH ONE (20:30)
[2020-10-04 20:57] LABS: CHLORIDE 108 mmol/L (98-107); POTASSIUM 4.1 mmol/L (3.5-5.1); SODIUM 137 mmol/L (136-145)
[2020-10-04 20:59] LABS: CALCIUM 9.2 mg/dL (8.5-10.1); GLUCOSE,RANDOM 87 mg/dL (74-106)
[2020-10-04 21:00] LABS: ANION GAP 5 MMOL/L (8-16); BLOOD UREA NITROGEN 10.2 mg/dL (7-18); CO2 24 mmol/L (21-32); LIPASE 71 U/L (73-393)
[2020-10-04 21:03] LABS: CREATININE 0.6 mg/dL (0.55-1.3); SGOT/AST 29 U/L (15-37); SGPT/ALT 30 U/L (13-61)
[2020-10-04 21:04] LABS: BILIRUBIN,TOTAL 0.5 mg/dL (0.2-1); TOT PROT 7.5 g/dl (6.4-8.2)
[2020-10-04 21:05] LABS: ALK PHOS 87 U/L (45-117)
[2020-10-04] MEDS ORDERED: morphine SULFATE 4 MG/ML VIAL ONE (21:41)
[2020-10-04 21:54] VITALS: BP 113/72; PULSE 61
== END 2020-10-05 01:13 | disposition home or self-care (01) ==
LOC: JER 18:00
PROC: 3E033NZ Introduction of Analgesics, Hypnotics, Sedatives into Peripheral Vein, Percutaneous Approach (ICD-10-PCS; principal; 2020-10-04)
PROC: 3E033GC Introduction of Other Therapeutic Substance into Peripheral Vein, Percutaneous Approach (ICD-10-PCS; 2020-10-04)
PROC: 3E0337Z Introduction of Electrolytic and Water Balance Substance into Peripheral Vein, Percutaneous Approach (ICD-10-PCS; 2020-10-04)
DX: R10.13 Epigastric pain (principal)
CPT/HCPCS: 36415; 71045-TC-FY; 74177-TC; 80053; 81003; 82550; 83690; 84484; 84703; 85025; 87086; 93005; 93010; 99285-25; Q9967

== ENCOUNTER 2021-10-03 19:30 | Emergency (ER) | payer OTHER ==
[2021-10-03 19:55] VITALS: BP 115/66; PULSE 93; TEMP 98.5; BMI 30.9
[2021-10-03 21:23] LABS: BASO % 0.6 % (0-2.0); EOS % 2.5 % (0-4.5); HEMATOCRIT 36.9 % (32.4-45.2); HEMOGLOBIN 12.8 GM/dL (10.7-15.3); LYMPH % 33.6 % (8-40); MCH 29.4 pg (25.7-33.7); MCHC 34.7 g/dl (32.0-36.0); MEAN CELL VOLUME 84.8 fl (80-96); MEAN PLT VOLUME 9.5 fl (7.5-11.1); NEUT % 54.3 % (42.8-82.8); PLATELET COUNT 219 10^3/uL (134-434); RBC 4.35 M/mm3 (3.60-5.2); RDW 12.5 % (11.6-15.6)
[2021-10-03 21:39] LABS: BLOOD UREA NITROGEN 17.2 mg/dL (7-18)
[2021-10-03 21:42] LABS: CREATININE 0.8 mg/dL (0.55-1.3)
[2021-10-03] MEDS ORDERED: ACETAMINOPHEN 500 MG TABLET (FP) PO ONE (22:28)
== END 2021-10-04 01:14 | disposition home or self-care (01) ==
LOC: JCOVINFU 19:30 → JER 19:30 → JCOVINFU 10-04 01:14
DX: J06.9 Acute upper respiratory infection, unspecified (principal)
CPT/HCPCS: 36415; 71275-TC; 80048; 85025; 99285-25